=== PATIENT | female | born 1995 | race African-American/Black ===

== ENCOUNTER 2016-11-17 13:16 | Emergency (ER) | payer MEDICAID ==
[~2016-11-17] VITALS: Ht 157.5 cm; Wt 62.6 kg
[2016-11-17 13:21] VITALS: BP 111/73
[2016-11-17] MEDS ORDERED: METHOCARBAMOL 750 MG TABLET ONE (13:54)
[2016-11-17] MEDS ORDERED: KETOROLAC 30 MG/1 ML ONE (13:54)
[2016-11-17] MEDS ORDERED: METHOCARBAMOL 750 MG TABLET PO ONE (14:00)
[2016-11-17] MEDS ORDERED: KETOROLAC 30 MG/1 ML IM ONE (14:00)
[2016-11-17 15:11] LABS: PATH.CAST-FLAG NOT PRESENT; SPERM-FLAG NOT PRESENT; SRC-FLAG NOT PRESENT; XTAL-FLAG NOT PRESENT; YLC-FLAG NOT PRESENT
[2016-11-17 15:16] LABS: HCG UR OBC PASS
== END 2016-11-17 15:39 | disposition home or self-care (01) ==
LOC: ED 14:27
DX: S39.012A Strain of muscle, fascia and tendon of lower back, initial encounter (principal); N30.90 Cystitis, unspecified without hematuria; X50.3XXA Overexertion from repetitive movements, initial encounter; Y93.89 Activity, other specified; Y92.89 Other specified places as the place of occurrence of the external cause; Y99.8 Other external cause status
CPT/HCPCS: 71020; 81001; 81025; 93005; 96372; 99285; J1885